=== PATIENT | female | born 2000 | race Caucasian/White ===

== ENCOUNTER 2021-08-19 20:13 | Emergency (ER) | payer BC, OTHER ==
--- NOTE | 2021-08-19 21:00 | EDM.PDOC ---
ED [facility] GENERAL MEDICAL PROBLEM - General Chief Complaint: Lower Extremity Injury/Pain Stated Complaint: L KNEE PAIN Time Seen by Provider: 08/19/21 20:13 Source of Information: Reports: Patient History Limitations: Reports: No Limitations - History of Present Illness INITIAL COMMENTS - FREE TEXT/NARRATIVE: Department with complaints of left knee pain. Patient states that she was trying to kick snow off a roof and she felt a popping sensation in her left knee. She states that it has pain and discomfort on certain movements and she feels like her knee is super weak. Patient is able to bear weight and is able to move all extremities without difficulty but states it is tender some to move it in certain ways. Patient also denies any CMS. Patient denies any recent injuries to that extremity other than today. Onset: Gradual Location: Reports: Lower Extremity, Left Quality: Reports: Throbbing Severity: Moderate Improves with: Reports: Rest Worsens with: Reports: Movement Context: Reports: Activity ED ROS GENERAL - Review of Systems Review Of Systems: Comprehensive ROS is negative, except as noted in HPI. Constitutional: Reports: No Symptoms HEENT: Reports: No Symptoms Respiratory: Reports: No Symptoms Cardiovascular: Reports: No Symptoms Endocrine: Reports: No Symptoms GI/Abdominal: Reports: No Symptoms : Reports: No Symptoms Musculoskeletal: Reports: No Symptoms Skin: Reports: No Symptoms Neurological: Reports: No Symptoms Psychiatric: Reports: No Symptoms Hematologic/Lymphatic: Reports: No Symptoms Immunologic: Reports: No Symptoms ED EXAM, GENERAL - Physical Exam Exam: See Below Exam Limited By: No Limitations General Appearance: Alert, WD/WN, No Apparent Distress Head: Atraumatic, Normocephalic Neck: Normal Inspection, Supple, Non-Tender, Full Range of Motion Respiratory/Chest: No Respiratory Distress, Lungs Clear, Normal Breath Sounds Extremities: Normal Inspection, Leg Pain (left leg- mild tissue swelling around the knee, no redness or bruising noted. ROM normal but tenderness with lateral external rotation of knee and pain with palpation. ) Neurological: Alert, Oriented Skin Exam: Warm, Dry, Intact, Normal Color Course - Orders/Labs/Meds Orders: Active Orders 24 hr Category Date Time Status DME for Prescription [COMM] Stat Oth 08/19/21 20:52 Ordered Departure - Departure Time of Disposition: 21:58 Disposition: Home, Self-Care 01 Clinical Impression: Strain of left knee Qualifiers: Encounter type: initial encounter Qualified Code(s): S86.912A - Strain of unspecified muscle(s) and tendon(s) at lower leg level, left leg, initial encounter - Discharge Information *PRESCRIPTION DRUG MONITORING PROGRAM REVIEWED*: Not Applicable *COPY OF PRESCRIPTION DRUG MONITORING REPORT IN PATIENT MIRELA: Not Applicable Instructions: Muscle Strain, [id number] Forms: ED Department Discharge Additional Instructions: 1. Rest 2. wear splint for 14 days as needed to help with any pain or discomfort 3. Can use tylenol and ibuprofen as needed for pain and discomfort 4. Diet as tolerated 5. Activity as tolerated 6. Elevated the injured area above the level of the heart to decrease swelling and discomfort. 7. Use ice 3-4 times a day at 20-minute intervals to help with any swelling and discomfort 8. Follow-up with your primary care provider symptoms continue or to progress 9. Follow with any questions or concerns 10. Discharge information has been provided regarding your injury - My Orders Last 24 Hours: My Active Orders 08/19/21 20:52 DME for Prescription [COMM] Stat - Assessment/Plan Last 24 Hours: My Active Orders 08/19/21 20:52 DME for Prescription [COMM] Stat Assessment:: 1. left knee strain
== END 2021-08-19 21:30 | disposition home or self-care (01) ==
LOC: VM.ED 20:13
DX: S86.912A Strain of unspecified muscle(s) and tendon(s) at lower leg level, left leg, initial encounter (principal); W22.09XA Striking against other stationary object, initial encounter
CPT/HCPCS: 99283

== ENCOUNTER 2024-11-14 22:45 | Emergency (ER) | payer BC, OTHER ==
[2024-11-14] MEDS ORDERED: Sodium Chloride 0.9% 10 ML Syringe FLUSH PRN (22:59)
[2024-11-14] MEDS: Lactated Ringers 1,000 ML IV ONE ×2 (23:10→23:55)
[2024-11-14 23:17] LABS: BASOPHILS PERCENT AUTO 0.2 % (0.2-1.2); EOSINOPHILS PERCENT AUTO 0.2 % (0.0-4.0); HEMATOCRIT 39.6 % (33.0-47.0); HEMOGLOBIN 13.4 g/dL (12.0-16.0); IMMATURE GRAN ABSOLUTE AUTO 0.03 x10^3/uL (0.00-0.07); LYMPHOCYTES ABSOLUTE AUTO 0.9 x10^3/uL (1.0-4.8); LYMPHOCYTES PERCENT AUTO 8.8 % (25.0-50.0); MEAN CORPUSCULAR HEMOGLOBIN 28.3 pg (26.0-32.0); MEAN CORPUSCULAR HGB CONC 33.8 g/dL (32.0-36.0); MEAN CORPUSCULAR VOLUME 83.7 fL (78.0-93.0); MONOCYTES ABSOLUTE AUTO 0.4 x10^3/uL (0.0-0.8); MONOCYTES PERCENT AUTO 3.7 % (2.0-11.0); NEUTROPHILS ABSOLUTE AUTO 8.5 x10^3/uL (1.8-7.7); NEUTROPHILS PERCENT AUTO 86.8 % (50.0-80.0); PLATELET COUNT,PLT 222 x10^3/uL (130-400); RED BLOOD CELL COUNT 4.73 x10^6/uL (4.00-5.50); WHITE BLOOD CELL COUNT,WBC 9.8 x10^3/uL (4.0-10.0)
[2024-11-14] MEDS: Metoclopramide 10 MG/2 ML SDV IVPUSH ONE (23:22)
[2024-11-14 23:28] LABS: INR 0.9 (0.9-1.1); PROTHROMBIN TIME 9.9 SEC (9.6-12.0); PTT,PARTIAL THROMBOPLSTIN TIME 24.4 SEC (23.5-33.2)
[2024-11-14 23:33] LABS: LACTIC ACID 0.9 mmol/L (0.4-2.0)
[2024-11-14 23:40] LABS: A/G RATIO 0.66; ALANINE AMINOTRANSFERASE,ALT 18 U/L (14-59); ALBUMIN 2.7 g/dL (3.4-5.0); ALKALINE PHOSPHATASE 86 U/L (46-116); ASPARTATE AMNIOTRANSFERASE,AST 12 U/L (15-37); BILIRUBIN TOTAL 0.4 mg/dL (0.2-1.0); BLOOD UREA NITROGEN,BUN 7 mg/dL (7-18); C-REACTIVE PROTEIN 2.38 mg/dL (<=0.50); CALCIUM 8.3 mg/dL (8.5-10.1); CARBON DIOXIDE,CO2 20 mmol/L (21-32); CHLORIDE,CL 103 mmol/L (98-107); CREATININE 0.4 mg/dL (0.55-1.02); GLUCOSE RANDOM 115 mg/dL (70-99); MAGNESIUM 1.4 mg/dL (1.8-2.4); PHOSPHORUS 3.9 mg/dL (2.6-4.7); POTASSIUM,K 3.5 mmol/L (3.5-5.1); PROTEIN TOTAL,TP 6.8 g/dL (6.4-8.2); SODIUM,NA 139 mmol/L (136-145)
[2024-11-14 23:41] LABS: ANION GAP 19.5 mmol/L (5-15); ESTIMATED GFR 140 mL/min (>=60)
[2024-11-14 23:46] LABS: BILIRUBIN,URINE SMALL (NEGATIVE); COLOR,URINE YELLOW (YELLOW); GLUCOSE,URINE NEGATIVE (NEGATIVE); KETONES,URINE >=160 mg/dL (NEGATIVE); LEUKOCYTE ESTERASE,URINE NEGATIVE (NEGATIVE); NITRITE,URINE NEGATIVE (NEGATIVE); OCCULT BLOOD,URINE NEGATIVE (NEGATIVE); PH,URINE 6.5 (5.0-8.0); PROTEIN,URINE 100 mg/dL (NEGATIVE); UROBILINOGEN,URINE 0.2 EU/dL (0.2)
[2024-11-14 23:48] LABS: APPEARANCE,URINE SLIGHTLY CLOUDY (CLEAR)
[2024-11-14 23:53] LABS: BACTERIA,URINE NOT SEEN /HPF (NOT SEEN); MUCUS,URINE NOT SEEN /LPF (NOT SEEN); RBC,URINE 0-5 /HPF (NOT SEEN); SQUAMOUS EPITHELIAL CELLS,UR MODERATE /HPF (NOT SEEN); WBC,URINE 0-5 /HPF (NOT SEEN)
[2024-11-15] MEDS: Metoclopramide 10 MG/2 ML SDV IVPUSH ONE (00:45)
[2024-11-15] MEDS: Metoclopramide 10 MG Tab PO ONE (01:01)
== END 2024-11-15 01:15 | disposition home or self-care (01) ==
LOC: VM.ED 22:45
DX: R11.2 Nausea with vomiting, unspecified (principal); R19.7 Diarrhea, unspecified; Z79.51 Long term (current) use of inhaled steroids
CPT/HCPCS: 80053; 81001; 83605; 83735; 84100; 84484; 85025; 85610; 85730; 86140; 93005; 93010; 96361; 96374; 96376; 99284; 99284-25; A9270-GY; J2765; J7120